=== PATIENT | male | born 1975 | race Hispanic/Latino ===

== ENCOUNTER 2017-05-20 18:24 | Emergency (ER) | payer OTHER ==
[2017-05-20 18:38] VITALS: O2SAT 99
[2017-05-20] MEDS ORDERED: Amoxicillin-Clav 875-125 mg Tab PO STA (18:54)
[2017-05-20] MEDS ORDERED: RABIES VACCINE 2.5 Units PDR IM ONE (18:54)
[2017-05-20] MEDS ORDERED: Rabies Immune Globulin 150 INTLU/ML VIAL IM ONE (18:54)
--- NOTE | 2017-05-20 18:56 | C.PDOC ---
History Of Present Illness 41 y/o male presents to ED just after being bitten unprovoked by a stray dog in the street on the right hand. pt's friend who lives in neighborhood not familiar with dog. tdap in last year. pt is right hand dominant. no numbness or tingling. Time Seen by Provider: 05/20/17 18:46 Chief Complaint (Nursing): Bite History Per: Patient History/Exam Limitations: no limitations Onset/Duration Of Symptoms: Hrs (1) Location Of Injury: Right: Hand Quality Of Symptoms: Painful Severity: Mild - Animal Bite Description Of The Attack: Unprovoked Attack Description Of The Animal: Stray Reports Animal Appears: Unknown Reports Animal's Immunization Status: Unknown Animal Control Notified: No Past Medical History Reviewed: Historical Data, Nursing Documentation, Vital Signs Vital Signs: Last Vital Signs Temp 98.5 F 05/20/17 21:16 Pulse 78 05/20/17 21:16 Resp 18 05/20/17 21:16 BP 138/78 05/20/17 21:16 Pulse Ox 99 05/20/17 21:16 - Medical History PMH: No Chronic Diseases Family History: States: Unknown Family Hx - Social History Hx Tobacco Use: No Hx Alcohol Use: Yes Hx Substance Use: No - Immunization History Hx Tetanus Toxoid Vaccination: Yes Hx Influenza Vaccination: No Hx Pneumococcal Vaccination: No Review Of Systems Constitutional: Negative for: Fever, Chills Musculoskeletal: Positive for: Hand Pain (right) Skin: Positive for: Other (laceration and puncture jean on right hand and fingers) Neurological: Negative for: Weakness, Numbness Physical Exam - Physical Exam Appears: Non-toxic, No Acute Distress Skin: Normal Color, Warm, Dry, Other (2-3 mm puncture wound to dorsum right thumb near mtp joint, 1 cm shallow curved flap laceration to second right finger , multiple abrasions and excoriations to 2nd, 3rd and 4th right fingers. ) Extremity: Normal ROM (from of right wrist, all fingers, passive and active rom , no tendon injuries suspected. ), Tenderness, Capillary Refill (less than 2 seconds. ), No Swelling Pulses: Left Radial: Normal, Right Radial: Normal Neurological/Psych: Oriented x3, Normal Speech, Normal Cognition, Normal Motor, Normal Sensation ED Course And Treatment O2 Sat by Pulse Oximetry: 99 Medical Decision Making Medical Decision Making: pt bit unprovoked by stray dog; tdap up to date. rabies vaccine and rabies immunoglobulin given, augmentin given. will d/c pt with augmentin and wound check in 3 days. and return to ed for rest of rabies vaccines on days 3, 7 and 14. wounds on hand well irrigated, bacitracin and bandage applied. Explained to patient due to risk of infection that lacerations form dog bites not recommended to be sutured, will heal on its own. Disposition Counseled Patient/Family Regarding: Diagnosis, Need For Followup, Rx Given - Disposition Disposition: HOME/ ROUTINE Disposition Time: 21:04 Condition: IMPROVED Additional Instructions: Please take antibiotics as directed until completed. Take ibuprofen for pain as prescribed. Return to ER in 3 days for both wound check and second dose of rabies vaccines. Return sooner to ER for any signs of infection in right hand, such as redness, swelling, pus from wounds, decreased range of movement, warmth , fever or any other concerns. You will need to return to ER for last doses of rabies vaccine on day 3, 7 and 14 from today. Prescriptions: Amoxicillin/Clavulanate [Augmentin 875 MG-125 MG] 1 tab PO BID #20 tab Ibuprofen [Motrin] 600 mg PO TID #30 tab Instructions: Rabies Vaccine (By injection), Rabies Immune Globulin (By injection), Animal Bite (ED) Forms: [facility] (Yakut), General Discharge Instructions - Clinical Impression Clinical Impression: Dog bite of multiple sites of right hand and fingers
[2017-05-20] MEDS ORDERED: Amoxicillin-Clav 875-125 mg Tab PO ONE (19:13)
[2017-05-20] MEDS ORDERED: Bacitracin 500 Units/gm Oint Foilpak UD ONE (20:50)
[2017-05-20 21:18] VITALS: BP 138/78; PULSE 78; RESP 18; TEMP 98.5
== END 2017-05-20 21:16 | disposition home or self-care (01) ==
LOC: C.ER 18:24
DX: S61.031A Puncture wound without foreign body of right thumb without damage to nail, initial encounter (principal); S61.230A Puncture wound without foreign body of right index finger without damage to nail, initial encounter; W54.0XXA Bitten by dog, initial encounter; Y92.410 Unspecified street and highway as the place of occurrence of the external cause; Z23 Encounter for immunization

== ENCOUNTER 2017-05-23 17:20 | Emergency (ER) | payer OTHER ==
[2017-05-23 17:26] VITALS: BP 121/83; PULSE 65; RESP 20; TEMP 98.1; O2SAT 97
[2017-05-23] MEDS ORDERED: RABIES VACCINE 2.5 Units PDR IM ONE (17:30)
--- NOTE | 2017-05-23 18:04 | C.PDOC ---
History Of Present Illness 41 y/o male presents to the ED of a repeat of rabies vaccination. The patient was bitten by a stray dog 05-20-17 . The patient has been compliant with his antibiotics. The patient states hands feel "good". The patient denies redness, swelling and discharge. Time Seen by Provider: 05/23/17 17:27 Chief Complaint (Nursing): Medical Clearance History Per: Patient Onset/Duration Of Symptoms: Days Current Symptoms Are (Timing): Still Present Additional History Per: Patient Past Medical History Reviewed: Historical Data, Nursing Documentation, Vital Signs Vital Signs: Last Vital Signs Temp 98.1 F 05/23/17 17:24 Pulse 65 05/23/17 17:24 Resp 20 05/23/17 17:24 BP 121/83 05/23/17 17:24 Pulse Ox 97 05/23/17 18:36 Surgical History: No Surg Hx Family History: States: No Known Family Hx - Social History Hx Tobacco Use: No Hx Alcohol Use: Yes Hx Substance Use: No - Immunization History Hx Tetanus Toxoid Vaccination: Yes Hx Influenza Vaccination: No Hx Pneumococcal Vaccination: No Review Of Systems Except As Marked, All Systems Reviewed And Found Negative. Constitutional: Negative for: Fever, Chills Gastrointestinal: Negative for: Nausea, Vomiting Musculoskeletal: Negative for: Hand Pain Skin: Positive for: Other (bitten by stray dog and repeat of rabies vaccination ) Physical Exam - Physical Exam Appears: Non-toxic, No Acute Distress Skin: Dry, Other (healing punctured wounds to the right hand, no discharge, mild erythema) Head: Atraumatic, Normacephalic Eye(s): bilateral: Normal Inspection, EOMI Nose: Normal Oral Mucosa: Moist Neck: Normal ROM, Supple Chest: Symmetrical Respiratory: No Accessory Muscle Use Extremity: Normal ROM, No Tenderness, Capillary Refill (2<sec. ), No Swelling Pulses: Left Radial: Normal, Right Radial: Normal Neurological/Psych: Oriented x3, Normal Speech, Normal Cognition, Normal Motor, Normal Sensation Gait: Steady ED Course And Treatment O2 Sat by Pulse Oximetry: 97 (RA) Progress Note: Raccine Vaccine ordered. The patient is advised to have a 1-2 day follow up with his PMD for further evaluation. Disposition - Disposition Disposition: HOME/ ROUTINE Disposition Time: 17:47 Condition: STABLE Additional Instructions: Follow up on day 7 and 14 for vaccination. Watch for signs of infection including redness, discharge, and swelling. Instructions: Rabies Vaccine (ED) Forms: [facility] (Mongolian) - Clinical Impression Clinical Impression: Need for rabies vaccination - PA / SHIPYARD PAINTER APPRENTICE / Resident Statement MD/DO has examined the patient and agrees with the treatment plan. - Scribe Statement The provider has reviewed the documentation as recorded by the Scribe Daphnie Ball
== END 2017-05-23 18:05 | disposition home or self-care (01) ==
LOC: C.ER 17:20
DX: Z23 Encounter for immunization (principal)

== ENCOUNTER 2017-05-30 16:56 | Emergency (ER) | payer OTHER ==
[2017-05-30 17:29] VITALS: BMI 29.1
[2017-05-30 17:30] VITALS: BP 121/74; PULSE 59; RESP 18; TEMP 98.5; O2SAT 97
[2017-05-30] MEDS ORDERED: RABIES VACCINE 2.5 Units PDR IM ONE (18:04)
--- NOTE | 2017-05-30 18:20 | C.PDOC ---
History Of Present Illness 41 year old male presents to returns to the ED for his third rabies vaccination in series. Patient states he was bit in his right hand by a stray dog on . Patient states he sustained multiple bite jean to his right hand that have been healing by secondary intention. Patient states the wound has been healing well and denies pain, redness and swelling to the area as well as fever, chills. Time Seen by Provider: 05/30/17 18:02 Chief Complaint (Nursing): Medical Clearance History Per: Patient History/Exam Limitations: no limitations Onset/Duration Of Symptoms: Days Current Symptoms Are (Timing): Better Additional History Per: Patient Past Medical History Reviewed: Historical Data, Nursing Documentation, Vital Signs Vital Signs: Last Vital Signs Temp 98.5 F 05/30/17 17:29 Pulse 59 L 05/30/17 17:29 Resp 18 05/30/17 17:29 BP 121/74 05/30/17 17:29 Pulse Ox 97 05/30/17 19:00 - Medical History PMH: No Chronic Diseases Surgical History: No Surg Hx Family History: States: Unknown Family Hx - Social History Hx Tobacco Use: No Hx Alcohol Use: Yes Hx Substance Use: No - Immunization History Hx Tetanus Toxoid Vaccination: Yes Hx Influenza Vaccination: No Hx Pneumococcal Vaccination: No Review Of Systems Constitutional: Negative for: Fever, Chills Skin: Positive for: Other (rabies vaccination for dog bite to right hand ) Physical Exam - Physical Exam Appears: Non-toxic, No Acute Distress Skin: Normal Color, Warm, Dry, Other (well healing puncture wound to dorsum of right first MTP. no warmth, erythema or discharge ) Extremity: Normal ROM, No Tenderness, Capillary Refill (less than 2 seconds ), No Swelling Neurological/Psych: Oriented x3, Normal Speech, Normal Cognition, Normal Sensation ED Course And Treatment O2 Sat by Pulse Oximetry: 97 (on RA) Pulse Ox Interpretation: Normal Medical Decision Making Medical Decision Making: Progress: Rabavert Vaccine IM administered. Disposition Counseled Patient/Family Regarding: Diagnosis, Need For Followup - Disposition Disposition: HOME/ ROUTINE Disposition Time: 18:29 Condition: GOOD Additional Instructions: If you see any discharge from wound, redness, swelliing on hand, then return to ER. Forms: [facility] (Lithuanian), General Discharge Instructions - Clinical Impression Clinical Impression: Need for rabies vaccination - PA / SOCIAL SERVICES / Resident Statement MD/DO has reviewed & agrees with the documentation as recorded. - Scribe Statement The provider has reviewed the documentation as recorded by the Scribe (Monisha Gil) All medical record entries made by the Scribe were at my direction and personally dictated by me. I have reviewed the chart and agree that the record accurately reflects my personal performance of the history, physical exam, medical decision making, and the department course for this patient. I have also personally directed, reviewed, and agree with the discharge instructions and disposition.
== END 2017-05-30 18:39 | disposition home or self-care (01) ==
LOC: C.ER 16:56
DX: Z23 Encounter for immunization (principal)

== ENCOUNTER 2017-06-13 16:49 | Emergency (ER) | payer OTHER ==
[2017-06-13 16:50] VITALS: BMI 29.1
[2017-06-13 16:55] VITALS: BP 130/73; PULSE 59; RESP 18; TEMP 97.5; O2SAT 95
[2017-06-13] MEDS ORDERED: RABIES VACCINE 2.5 Units PDR IM ONE (16:59)
--- NOTE | 2017-06-13 17:15 | C.PDOC ---
History Of Present Illness Pt is here for his 4th and final Rabies vaccination. Time Seen by Provider: 06/13/17 16:56 Chief Complaint (Nursing): Rabies Vaccine Series History Per: Patient Onset/Duration Of Symptoms: Days (14) Current Symptoms Are (Timing): Better Severity: Mild Context: bitten by dog Location: Right hand Quality: bite Reports Recently: Seen In ED Additional History Per: Prior Records Past Medical History Reviewed: Historical Data, Nursing Documentation, Vital Signs Vital Signs: Last Vital Signs Temp 97.5 F L 06/13/17 16:53 Pulse 59 L 06/13/17 16:53 Resp 18 06/13/17 16:53 BP 130/73 06/13/17 16:53 Pulse Ox 95 06/13/17 17:15 - Medical History PMH: No Chronic Diseases Family History: States: Unknown Family Hx - Social History Hx Tobacco Use: No Hx Alcohol Use: Yes Hx Substance Use: No - Immunization History Hx Tetanus Toxoid Vaccination: Yes Hx Influenza Vaccination: No Hx Pneumococcal Vaccination: No Review Of Systems Except As Marked, All Systems Reviewed And Found Negative. Constitutional: Negative for: Fever, Chills ENT: Negative for: Throat Pain Gastrointestinal: Negative for: Vomiting Musculoskeletal: Negative for: Neck Pain Skin: Negative for: Rash Neurological: Negative for: Weakness, Numbness, Altered Mental Status Physical Exam - Physical Exam Appears: Non-toxic, No Acute Distress Skin: Normal Color, Warm, Dry Head: Atraumatic, Normacephalic Neck: Normal ROM, Supple Extremity: Normal ROM, Other (Healing bite wounds on right hand) Neurological/Psych: Oriented x3, Normal Speech, Normal Cognition, Normal Motor, Normal Sensation ED Course And Treatment O2 Sat by Pulse Oximetry: 95 Pulse Ox Interpretation: Normal Disposition Counseled Patient/Family Regarding: Diagnosis, Need For Followup - Disposition Referrals: Jose Thompson MD [Medical Doctor] - Disposition: HOME/ ROUTINE Disposition Time: 17:52 Condition: STABLE Additional Instructions: Follow up with your doctor. Return to the ER if you develop worsening of symptoms or if you have any other concerns. Instructions: Rabies Vaccine (ED) - Clinical Impression Clinical Impression: Rabies vaccination
== END 2017-06-13 17:56 | disposition home or self-care (01) ==
LOC: C.ER 16:49
DX: Z23 Encounter for immunization (principal)

== ENCOUNTER 2017-10-27 19:05 | Emergency (ER) | payer OTHER ==
[2017-10-27 19:06] VITALS: BMI 29.1
[2017-10-27 19:19] VITALS: BP 132/80; PULSE 74; RESP 20; TEMP 98.3; O2SAT 98
--- NOTE | 2017-10-27 19:53 | C.PDOC ---
History Of Present Illness 42 yo male come in for evaluation of Left elbow pain developed since early today after sustained mechanical fall while playing sports. Pt c/o localized pain over more medial aspect Left elbow, localized, worse with left elbow movement. Otherwise, pt denies obvious deformity, weakness, sensory or vascular deficits to Left arm. Pt denies any other active complaints. Ambulate to Ed for evaluation, not in any apparent distress. Time Seen by Provider: 10/27/17 19:39 Chief Complaint (Nursing): Upper Extremity Problem/Injury History Per: Patient Past Medical History Reviewed: Historical Data, Nursing Documentation, Vital Signs Vital Signs: Last Vital Signs Temp 98.3 F 10/27/17 19:12 Pulse 74 10/27/17 19:12 Resp 20 10/27/17 19:12 BP 132/80 10/27/17 19:12 Pulse Ox 98 10/27/17 19:59 - Medical History PMH: No Chronic Diseases Family History: States: Unknown Family Hx - Social History Hx Tobacco Use: No Hx Alcohol Use: Yes Hx Substance Use: No - Immunization History Hx Tetanus Toxoid Vaccination: Yes Hx Influenza Vaccination: No Hx Pneumococcal Vaccination: No Review Of Systems Except As Marked, All Systems Reviewed And Found Negative. Eyes: Negative for: Vision Change ENT: Negative for: Ear Discharge, Nose Discharge Cardiovascular: Negative for: Chest Pain, Palpitations Respiratory: Negative for: Cough, Shortness of Breath, Wheezing Gastrointestinal: Negative for: Nausea, Vomiting, Abdominal Pain Genitourinary: Negative for: Incontinence Musculoskeletal: Positive for: Other (Left elbow pain) Skin: Negative for: Bruising Neurological: Negative for: Weakness, Numbness, Altered Mental Status, Headache , Dizziness Physical Exam - Physical Exam Appears: Well, Non-toxic, No Acute Distress Skin: Normal Color, Warm, Dry, No Ecchymosis Head: Atraumatic, Normacephalic Eye(s): bilateral: PERRL Nose: No Deformity, No Tenderness Oral Mucosa: Moist Neck: Trachea Midline, No Midline Cervical Tenderness, No Paracervical Tenderness, No Step Off Deformity, Supple Cardiovascular: Rhythm Regular, No Murmur, No JVD Respiratory: No Decreased Breath Sounds, No Accessory Muscle Use, No Stridor, No Wheezing Gastrointestinal/Abdominal: Soft, No Tenderness, No Distention, No Guarding, No Rebound Back: No Vertebral Tenderness Extremity: Normal ROM (mod discomfort to left elbow flexion/extension.), Tenderness (left elbow tenderness medial aspect. No palpable deformity.), Capillary Refill (less than 2 sec to left hand), No Deformity, No Swelling Neurological/Psych: Oriented x3, Normal Speech, Normal Motor, Normal Sensation, Normal Reflexes ED Course And Treatment O2 Sat by Pulse Oximetry: 98 Pulse Ox Interpretation: Normal - Other Rad left elbow X-Ray: Interpreted by Me Interpretation: . Progress Note: On re-evaluation, pt is afebrile, hemodynamicaly stable. Non- toxic. Ambulatory in ED with stable gait. head: AT/NC. neck; Supple, (-) midline tenderness. Lungs: CTA B/L, BS equal B/L. LLE: Neuorlogicaly intact. Imaging review Disposition Counseled Patient/Family Regarding: Studies Performed, Diagnosis, Need For Followup, Rx Given - Disposition Referrals: Ana Paula Manley MD [Staff Provider] - Disposition: HOME/ ROUTINE Disposition Time: 20:35 Condition: STABLE Additional Instructions: Sling for 1 week Elbow kendra wrap RICE-rest,ice, compression Follow up with Orthopedics in 2-3 days for re-evaluation. return if any new changes. Instructions: Elbow Sprain (DC) Forms: [employer] (Bahraini) - Clinical Impression Clinical Impression: Elbow sprain
--- NOTE | 2017-10-28 08:45 | RAD ---
Left elbow three views History: Injury. Comparison: None available. Findings: Questionable curvilinear lucency through the radial head laterally on the oblique view may represent a traversing vessel as it is not well appreciated on the additional sequences. No significant elbow joint effusion. Mild spurring of the coronoid process. Impression: Questionable curvilinear lucency through the radial head laterally on the oblique view may represent a traversing vessel as it is not well appreciated on the additional sequences. No significant elbow joint effusion. Mild spurring of the coronoid process. If pain persists, consider correlation with MRI.
== END 2017-10-27 20:53 | disposition home or self-care (01) ==
LOC: C.ER 19:05
DX: S53.402A Unspecified sprain of left elbow, initial encounter (principal); W18.30XA Fall on same level, unspecified, initial encounter

== ENCOUNTER 2018-04-03 05:08 | Observation (INO) | payer OTHER ==
[2018-04-03 05:08] VITALS: BMI 29.1
--- NOTE | 2018-04-03 05:23 | C.PDOC ---
History Of Present Illness 42 year old male presents to the ED for evaluation. Patient reports he has not been feeling well, patient states he went to the store to buy Nyquil and wet to sleep. Patient rpeorts that at 04:30 patient got up to go to the bathroom and later found himself laying on the kitchen floor. Patient states he does not remember what happened. Patient denies headache, head injury, trauma, CP, SOB, dizziness, weakness, numbness, nausea, vomit. Time Seen by Provider: 04/03/18 05:23 Chief Complaint (Nursing): Dizziness/Lightheaded History Per: Patient History/Exam Limitations: no limitations Onset/Duration Of Symptoms: Hrs Current Symptoms Are (Timing): Still Present Number Of Syncopal Episodes: 1 Activity At Onset Of Symptoms: Walking Associated Symptoms Preceding Syncopal Episode: No Predromal Symptoms (Sudden Onset) Seizure Or Post-ictal Symptoms: None Possible Causative Factor(s): New Medications Fall Associated With With Symptoms: Yes Severity: Moderate Pain Scale Rating Of: 4 Recent travel outside of the [place]: No Additional History Per: Patient - Symptoms Of CVA Associated Symptoms: denies: Impaired Speech Recent Aspirin Use: No Current Coumadin Use?: No Recent Head Trauma: No Past Medical History Reviewed: Historical Data, Nursing Documentation, Vital Signs - Medical History PMH: No Chronic Diseases Surgical History: No Surg Hx Family History: States: No Known Family Hx - Social History Hx Tobacco Use: No Hx Alcohol Use: Yes Hx Substance Use: No - Immunization History Hx Tetanus Toxoid Vaccination: Yes Hx Influenza Vaccination: No Hx Pneumococcal Vaccination: No Review Of Systems Constitutional: Positive for: Malaise. Negative for: Fever, Chills Eyes: Negative for: Vision Change ENT: Negative for: Throat Pain Cardiovascular: Negative for: Chest Pain Respiratory: Negative for: Shortness of Breath Gastrointestinal: Negative for: Nausea, Vomiting Genitourinary: Negative for: Incontinence Musculoskeletal: Negative for: Back Pain Skin: Negative for: Rash Neurological: Negative for: Weakness, Numbness, Headache, Dizziness Psych: Negative for: Anxiety Physical Exam - Physical Exam Appears: Non-toxic, No Acute Distress Skin: Warm, Dry Head: Normacephalic Eye(s): bilateral: Normal Inspection Neck: Trachea Midline, No Midline Cervical Tenderness, Supple Chest: Symmetrical Cardiovascular: Rhythm Regular Respiratory: No Rales, Rhonchi (at the bases), No Wheezing Gastrointestinal/Abdominal: Soft, No Tenderness, No Guarding, No Rebound Back: Normal Inspection Extremity: Normal ROM Extremity: Bilateral: Atraumatic, Normal Color And Temperature, Normal ROM Pulses: Left Dorsalis Pedis: Normal, Right Dorsalis Pedis: Normal Neurological/Psych: Oriented x3, Normal Speech, Normal Cognition Gait: Unable To Assess ED Course And Treatment ECG: Interpreted By Me, Viewed By Me ECG Rhythm: Sinus Rhythm (65), Nonspecific Changes O2 Sat by Pulse Oximetry: 100 (ON RA) Pulse Ox Interpretation: Normal Progress Note: Plan: - VBG. - EKG. - Labs. - CXR. - IV fluids. - Blood culture. - Influenza A B. - UA Disposition Counseled Patient/Family Regarding: Studies Performed, Diagnosis - Disposition Disposition Time: 05:23 Condition: FAIR Forms: [facility] (Kittitian) - Clinical Impression Clinical Impression: Syncope - Scribe Statement The provider has reviewed the documentation as recorded by the Scribe Caleb Urbano All medical record entries made by the Scribe were at my direction and personally dictated by me. I have reviewed the chart and agree that the record accurately reflects my personal performance of the history, physical exam, medical decision making, and the department course for this patient. I have also personally directed, reviewed, and agree with the discharge instructions and disposition. Physician Patient Turnover Patient Signed Over To: Pablito Bowser Handoff Comments: pending labs, ct scan, re-eval and dispo
[2018-04-03] MEDS ORDERED: Sodium Chloride 0.9% 1,000 ML IV ONE (05:29)
[2018-04-03 05:55] LABS: VENOUS BLOOD GAS BASE EXCESS 2.7 mmol/L (0.0-2.0); VENOUS BLOOD GAS PCO2 50 mmHg (40-60); VENOUS BLOOD GAS PO2 25 mm/Hg (30-55); VENOUS BLOOD PH 7.37 (7.32-7.43)
[2018-04-03 06:17] LABS: BASO % 0.5 % (0.0-2.0); EOS # 0.1 K/uL (0.0-0.7); EOS % 1.5 % (0.0-4.0); HEMOGLOBIN 14.6 g/dL (12.0-18.0); LYMPH # 0.6 K/uL (1.0-4.3); LYMPH % 7.5 % (20.0-40.0); MEAN CELL VOLUME 90.6 fL (80.0-94.0); MEAN CORPUSCULAR HEMOGLOBIN 31.9 pg (27.0-31.0); MEAN CORPUSCULAR HGB CONC 35.3 g/dL (33.0-37.0); MEAN PLATELET VOLUME 8.5 fL (7.2-11.7); MONO # 0.7 K/uL (0.0-0.8); MONO % 9.7 % (0.0-10.0); NEUT % 80.8 % (50.0-75.0); PLATELET COUNT 129 K/uL (130-400); RBC 4.57 Mil/uL (4.40-5.90); RED CELL DISTRIBUTION WIDTH 13.1 % (11.5-14.5); WHITE BLOOD COUNT 7.4 K/uL (4.8-10.8)
[2018-04-03] MEDS ORDERED: Sodium Chloride 0.9% 1,000 ML ONE (06:23)
[2018-04-03 06:31] LABS: INR 1.2; PROTHROMBIN TIME 12.7 SECONDS (9.7-12.2)
[2018-04-03 06:45] LABS: ALB/GLOB RATIO 1.2 (1.0-2.1); ALBUMIN 3.6 g/dL (3.5-5.0); ALT/SGPT 45 U/L (21-72); AST/SGOT 33 U/L (17-59); BLOOD UREA NITROGEN 18 mg/dL (9-20); CALCIUM 8.6 mg/dl (8.6-10.4); GFR NON-AFRICAN AMERICAN > 60; LIPASE 44 U/L (23-300)
[2018-04-03 07:42] LABS: URINE BILIRUBIN NEGATIVE (NEGATIVE); URINE BLOOD NEGATIVE (NEGATIVE); URINE CLARITY Clear (Clear); URINE COLOR Yellow (YELLOW); URINE GLUCOSE (UA) NORMAL (Normal); URINE LEUKOCYTE ESTERASE NEG Leu/uL (Negative); URINE PROTEIN NEGATIVE (NEGATIVE); URINE UROBILINOGEN NORMAL mg/dL (0.2-1.0)
[2018-04-03 07:49] LABS: LYMPHOCYTE 6 % (20-40); MONOCYTE 7 % (0-10); NEUTROPHIL 87 % (50-75); PLATELET ESTIMATE NORMAL (NORMAL); TOTAL CELLS COUNTED 100
[2018-04-03 08:14] VITALS: RESP 20; TEMP 98.2
[2018-04-03 08:42] LABS: BARBITURATES, UR NEGATIVE (NEGATIVE); BENZODIAZEPINES, UR NEGATIVE (NEGATIVE); OPIATES, UR NEGATIVE (NEGATIVE); PHENCYCLIDINE, UR NEGATIVE (NEGATIVE)
--- NOTE | 2018-04-03 09:28 | CT ---
Date of service: 04/03/2018 PROCEDURE: CT HEAD WITHOUT CONTRAST. HISTORY: syncope, fall COMPARISON: None available. TECHNIQUE: Axial computed tomography images were obtained through the head/brain without intravenous contrast. Radiation dose: Total exam DLP = 1037.89 mGy-cm. This CT exam was performed using one or more of the following dose reduction techniques: Automated exposure control, adjustment of the mA and/or kV according to patient size, and/or use of iterative reconstruction technique. FINDINGS: HEMORRHAGE: No intracranial hemorrhage. BRAIN: No mass effect or edema. No atrophy or chronic microvascular ischemic changes. VENTRICLES: Unremarkable. No hydrocephalus. CALVARIUM: Unremarkable. PARANASAL SINUSES: Unremarkable as visualized. No significant inflammatory changes. MASTOID AIR CELLS: Unremarkable as visualized. No inflammatory changes. OTHER FINDINGS: None. IMPRESSION: Normal CT of the Head. No intracranial mass, hemorrhage or evidence of acute infarct. The preliminary findings for this examination were reported by [facility] at 7:22 a.m. on 04/03/2018. There is concurrence of this report with the preliminary findings.
--- NOTE | 2018-04-03 09:45 | RAD ---
Date of service: 04/03/2018 PROCEDURE: CHEST RADIOGRAPH, 1 VIEW HISTORY: SOB COMPARISON: None available. FINDINGS: LUNGS: Clear. PLEURA: No pneumothorax or pleural fluid seen. CARDIOVASCULAR: Normal. OSSEOUS STRUCTURES: No significant abnormalities. VISUALIZED UPPER ABDOMEN: Normal. OTHER FINDINGS: None. IMPRESSION: No active disease.
[2018-04-03] MEDS ORDERED: Amoxicillin-Clav 875-125 mg Tab PO SCH (14:00)
[2018-04-03 15:38] VITALS: BP 125/70; O2SAT 97
[2018-04-03 16:05] VITALS: PULSE 70
--- NOTE | 2018-04-03 16:42 | CP.PCM.HP ---
Past Patient History - Past Social History Smoking Status: Never Smoked - PSYCHIATRIC Hx Substance Use: No - SURGICAL HISTORY Hx Surgeries: No - ANESTHESIA Hx Anesthesia: No Meds Allergies/Adverse Reactions: Allergies Allergy/AdvReac Type Severity Reaction Status Date / Time shellfish derived Allergy Verified 04/03/18 05:28 Physical Exam - Constitutional Appears: Well - Head Exam Head Exam: ATRAUMATIC, NORMAL INSPECTION, NORMOCEPHALIC - Eye Exam Eye Exam: EOMI, Normal appearance, PERRL Pupil Exam: NORMAL ACCOMODATION, PERRL - ENT Exam ENT Exam: Mucous Membranes Moist, Normal Exam - Neck Exam Neck exam: Positive for: Normal Inspection - Respiratory Exam Respiratory Exam: Decreased Breath Sounds - Cardiovascular Exam Cardiovascular Exam: REGULAR RHYTHM, +S1, +S2 - GI/Abdominal Exam GI & Abdominal Exam: Diminished Bowel Sounds, Soft - Rectal Exam Rectal Exam: Deferred Results - Vital Signs Recent Vital Signs: Last Vital Signs Temp 98.2 F 04/03/18 15:36 Pulse 70 04/03/18 15:54 Resp 20 04/03/18 15:36 BP 125/70 04/03/18 15:36 Pulse Ox 97 04/03/18 15:56 - Labs Result Diagrams: 04/03/18 06:14 04/03/18 06:14 Labs: Laboratory Results - last 24 hr 04/03/18 04/03/18 04/03/18 05:25 05:50 06:14 WBC 7.4 RBC 4.57 Hgb 14.6 Hct 41.4 MCV 90.6 MCH 31.9 H MCHC 35.3 RDW 13.1 Plt Count 129 L MPV 8.5 Neut % (Auto) 80.8 H Lymph % (Auto) 7.5 L [place] % (Auto) 9.7 Eos % (Auto) 1.5 Baso % (Auto) 0.5 Neut # (Auto) 6.0 Lymph # (Auto) 0.6 L [place] # (Auto) 0.7 Eos # (Auto) 0.1 Baso # (Auto) 0.0 Neutrophils % (Manual) 87 H Lymphocytes % (Manual) 6 L Monocytes % (Manual) 7 Platelet Estimate Normal RBC Morphology Normal PT INR APTT pO2 25 L VBG pH 7.37 VBG pCO2 50 VBG HCO3 25.6 VBG Total CO2 30.4 H VBG O2 Sat (Calc) 53.6 VBG Base Excess 2.7 H VBG Potassium 3.6 Sodium 138.0 Chloride 106.0 Glucose 112 H Lactate 1.2 Potassium Carbon Dioxide Anion Gap BUN Creatinine Est GFR ( Amer) Est GFR (Non-Af Amer) POC Glucose (mg/dL) 104 Random Glucose Calcium Magnesium Total Bilirubin AST ALT Alkaline Phosphatase Troponin I Total Protein Albumin Globulin Albumin/Globulin Ratio Lipase Venous Blood Potassium 3.6 Urine Color Urine Clarity Urine pH Ur Specific [place] Urine Protein Urine Glucose (UA) Urine Ketones Urine Blood Urine Nitrate Urine Bilirubin Urine Urobilinogen Ur Leukocyte Esterase Urine WBC (Auto) Urine RBC (Auto) Urine Opiates Screen Urine Methadone Screen Ur Barbiturates Screen Ur Phencyclidine Scrn Ur Amphetamines Screen U Benzodiazepines Scrn U Oth Cocaine Metabols U Cannabinoids Screen Influenza Typ A,B (EIA) 04/03/18 04/03/18 04/03/18 06:14 06:14 07:02 WBC RBC Hgb Hct MCV MCH MCHC RDW Plt Count MPV Neut % (Auto) Lymph % (Auto) [place] % (Auto) Eos % (Auto) Baso % (Auto) Neut # (Auto) Lymph # (Auto) [place] # (Auto) Eos # (Auto) Baso # (Auto) Neutrophils % (Manual) Lymphocytes % (Manual) Monocytes % (Manual) Platelet Estimate RBC Morphology PT 12.7 H INR 1.2 APTT 26 pO2 VBG pH VBG pCO2 VBG HCO3 VBG Total CO2 VBG O2 Sat (Calc) VBG Base Excess VBG Potassium Sodium 138 Chloride 105 Glucose Lactate Potassium 3.8 Carbon Dioxide 25 Anion Gap 12 BUN 18 Creatinine 0.9 Est GFR ( Amer) > 60 Est GFR (Non-Af Amer) > 60 POC Glucose (mg/dL) Random Glucose 114 H Calcium 8.6 Magnesium 2.0 Total Bilirubin 0.6 AST 33 ALT 45 Alkaline Phosphatase 53 Troponin I < 0.0120 Total Protein 6.6 Albumin 3.6 Globulin 3.0 Albumin/Globulin Ratio 1.2 Lipase 44 Venous Blood Potassium Urine Color Urine Clarity Urine pH Ur Specific [place] Urine Protein Urine Glucose (UA) Urine Ketones Urine Blood Urine Nitrate Urine Bilirubin Urine Urobilinogen Ur Leukocyte Esterase Urine WBC (Auto) Urine RBC (Auto) Urine Opiates Screen Urine Methadone Screen Ur Barbiturates Screen Ur Phencyclidine Scrn Ur Amphetamines Screen U Benzodiazepines Scrn U Oth Cocaine Metabols U Cannabinoids Screen Influenza Typ A,B (EIA) Negative for flu a/b 04/03/18 04/03/18 07:23 07:23 WBC RBC Hgb Hct MCV MCH MCHC RDW Plt Count MPV Neut % (Auto) Lymph % (Auto) [place] % (Auto) Eos % (Auto) Baso % (Auto) Neut # (Auto) Lymph # (Auto) [place] # (Auto) Eos # (Auto) Baso # (Auto) Neutrophils % (Manual) Lymphocytes % (Manual) Monocytes % (Manual) Platelet Estimate RBC Morphology PT INR APTT pO2 VBG pH VBG pCO2 VBG HCO3 VBG Total CO2 VBG O2 Sat (Calc) VBG Base Excess VBG Potassium Sodium Chloride Glucose Lactate Potassium Carbon Dioxide Anion Gap BUN Creatinine Est GFR ( Amer) Est GFR (Non-Af Amer) POC Glucose (mg/dL) Random Glucose Calcium Magnesium Total Bilirubin AST ALT Alkaline Phosphatase Troponin I Total Protein Albumin Globulin Albumin/Globulin Ratio Lipase Venous Blood Potassium Urine Color Yellow Urine Clarity Clear Urine pH 7.0 Ur Specific [place] 1.019 Urine Protein Negative Urine Glucose (UA) Normal Urine Ketones Negative Urine Blood Negative Urine Nitrate Negative Urine Bilirubin Negative Urine Urobilinogen Normal Ur Leukocyte Esterase Neg Urine WBC (Auto) 2 Urine RBC (Auto) < 1 Urine Opiates Screen Negative Urine Methadone Screen Negative Ur Barbiturates Screen Negative Ur Phencyclidine Scrn Negative Ur Amphetamines Screen Negative U Benzodiazepines Scrn Negative U Oth Cocaine Metabols Negative U Cannabinoids Screen Negative Influenza Typ A,B (EIA)
--- NOTE | 2018-04-03 19:33 | CARD ---
APPROVED REPORT Date of service: 04/03/2018 EKG Measurement Heart [id number] <Conclusion> Normal sinus rhythm Septal infarct, age undetermined Abnormal ECG
== END 2018-04-03 19:39 | disposition home or self-care (01) ==
LOC: C.ER 05:08 → C.6T 07:27
PROVIDERS: ADMIT Internal Medicine Nephrology; ATTEND Internal Medicine Nephrology
DX: R55 Syncope and collapse (principal)
CPT/HCPCS: 70450; 71045; 80053; 80324; 80345; 80346; 80349; 80353; 80358; 80361; 81001; 82803; 82948; 83690; 83735; 83992; 84484; 85025; 85610; 85730; 87040; 87804; 93005; 96360; G0378; J7030